=== PATIENT | female | born 1980 | race Caucasian/White ===

== ENCOUNTER 2020-05-02 17:47 | Emergency (ER) | payer SELFPAY ==
[~2020-05-02] VITALS: Ht 162.6 cm; Wt 119.3 kg
[2020-05-02 18:05] VITALS: Ht 162.6 cm; Wt 119.3 kg
[2020-05-02 21:14] LABS: UA SPECIFIC GRAVITY >=1.030 (1.005-1.035); microscopic required? YES; urine erythrocyte TRACE (NEGATIVE)
[2020-05-02 21:40] LABS: BASOPHIL % 0.2 % (0-2); PLATELET COUNT 461 x10^3mcL (130-400); RED CELL DISTRIBUTION WIDTH 15.5 % (11.5-14.5)
[2020-05-02 21:55] LABS: CALCIUM 8.9 mg/dL (8.5-10.1); CARBON DIOXIDE 26.1 mmol/L (21-32); CHLORIDE SERUM 105 mmol/L (98-107); CREATININE SERUM 0.8 mg/dL (0.6-1.0); GFR1 > 60 mL/min; GLUCOSE SERUM 109 mg/dL (74-106); POTASSIUM SERUM 4.4 mmol/L (3.5-5.1); SODIUM SERUM 141 mmol/L (136-145)
[2020-05-02 21:59] LABS: ALKALINE PHOSPHATASE 97 U/L (46-116); ALT/SGPT 27 U/L (14-59); AST/SGOT 9 U/L (15-37); BILIRUBIN TOTAL 0.33 mg/dL (0.20-1.00); LIPASE 425 IU/L (73-393); TOTAL PROTEIN, SERUM 7.6 g/dL (6.4-8.2)
[2020-05-02 22:11] LABS: ALBUMIN 3.3 g/dL (3.4-5.0)
[2020-05-02 22:13] VITALS: BP 115/80
== END 2020-05-02 22:13 | disposition home or self-care (01) ==
LOC: ED 17:47
PROVIDERS: Emergency Medicine
DX: R10.2 Pelvic and perineal pain (principal); Z88.6 Allergy status to analgesic agent; Z91.041 Radiographic dye allergy status
CPT/HCPCS: J2270; J2405; J7030